=== PATIENT | male | born 1930 | race Caucasian/White ===

== ENCOUNTER 2018-08-02 16:31 | Inpatient (IN) | payer MEDICARE ==
[2018-08-02 17:11] LABS: #Eosinphils 0.3 thou/uL (0.0-0.7); #Lymphocytes 1.1 thou/uL (1.20-3.40); #Monocytes 0.8 thou/uL (0.11-0.59); #Neutrophils 5.6 thou/uL (1.40-6.50); %Basophils 0.6 % (0.0-1.0); %Eosinophils 3.9 % (0.0-10.0); %Lymphocytes 13.8 % (21.0-51.0); %Monocytes 10.8 % (0.0-10.0); Hemoglobin 10.4 g/dL (14.0-18.0); Mean Corpuscular HGB CONC 32.1 g/dL (32.0-36.0); Mean Corpuscular Hemoglobin 30.7 pg (27.0-31.0); Mean Corpuscular Volume 95.6 fL (78.0-98.0); Mean Platelet Volume 7.6 fL (7.4-10.4); Platelet Count 225 thou/uL (130-400); RBC Distribution Width 12.7 % (11.5-14.5); Red Blood Cell (RBC) Count 3.38 mill/uL (4.70-6.10); White Blood Cell (WBC) Count 7.8 thou/uL (4.8-10.8)
[2018-08-02 17:17] LABS: INR-International Normal Ratio 2.1; PTT 35.7 SEC (22.9-36.1)
[2018-08-02 17:38] LABS: ALT (SGPT) 11 U/L (8-55); AST (SGOT) 15 U/L (5-34); Albumin 3.8 g/dL (3.4-4.8); Alkaline Phosphatase 58 U/L (40-150); Anion Gap 14 mmol/L (10-20); BUN (Urea Nitrogen) 35 mg/dL (8.4-25.7); Bilirubin, Total 0.9 mg/dL (0.2-1.2); CK (CPK) 114 U/L (30-200); Calc. Creatinine Clearance 0 mL/min (70-130); Calcium 8.7 mg/dL (7.8-10.44); Carbon Dioxide 23 mmol/L (23-31); Chloride 108 mmol/L (98-107); Estimated GFR-MDRD 42; Globulin 2.3 g/dL (2.4-3.5); Glucose 103 mg/dL (83-110); Lipase 14 U/L (8-78); Potassium 4.1 mmol/L (3.5-5.1); Protein, Total 6.1 g/dL (5.8-8.1); Sodium 141 mmol/L (136-145)
[2018-08-02] MEDS ORDERED: Morphine 4 MG/ML VIAL ONE ×2 (17:40→23:17)
[2018-08-02] MEDS ORDERED: Ondansetron ODT 4 MG TAB PO PRN (18:48)
[2018-08-02] MEDS ORDERED: Ondansetron PF 4 MG/2 ML Vial IVP PRN (18:48)
[2018-08-02] MEDS ORDERED: Morphine 4 MG/ML VIAL SLOW IVP PRN (18:48)
[2018-08-02] MEDS ORDERED: Dextrose 50% Abboject 50 ML SYRINGE SLOW IVP PRN (18:48)
[2018-08-02] MEDS ORDERED: Dextrose 5% in Water 1,000 ML IV PRN (18:48)
[2018-08-02] MEDS ORDERED: hydrALAZINE 20 MG/ML VIAL SLOW IVP PRN (18:48)
--- NOTE | 2018-08-02 18:52 | RAD ---
FRONTAL RADIOGRAPH PELVIS 08/02/18 COMPARISON: None. HISTORY: Fall, trauma, pain. FINDINGS: Obliquely oriented impacted fracture is seen involving the proximal right femur in the intertrochante ramona region. There is prominent degenerative change of the lower lumbar spine. Pelvic ring appears intact with no widening of the sacroiliac joint or pubic symphysis. IMPRESSION: Intertrochanteric fracture of the proximal right femur. POS: LATISHA
--- NOTE | 2018-08-02 18:53 | RAD ---
FRONTAL RADIOGRAPH CHEST 08/02/18 COMPARISON: None. HISTORY: Fall, trauma, pain, right hip fracture. FINDINGS: There is prominent degenerative change involving bilateral shoulders. There is no pneumothorax, lobar consolidation, or alveolar edema. There is mild increased linear interstitial density. Minimal blunting of costophrenic angle on right suggests scar and/or volume loss. IMPRESSION: No focal consolidation or alveolar edema. POS: ALYCEH
--- NOTE | 2018-08-02 18:55 | RAD ---
RIGHT HIP TWO VIEWS: 08/02/2018 HISTORY: Injury. Trauma. Pain. COMPARISON: None. FINDINGS: There is an obliquely oriented, mildly impacted fracture of the proximal right femur. This is seen i n the intertrochanteric region, extending into the subtrochanteric region, medially, inferior to the lesser trochanter. IMPRESSION: Obliquely oriented intertrochanteric/subtrochanteric fracture of the proximal right femur. POS: LATISHA
[2018-08-02] MEDS ORDERED: Phytonadione 10 MG in Sodium Chloride 0.9% 50 ML IVPB SCH (19:15)
[2018-08-03 00:33] VITALS: BMI 26.2
--- NOTE | 2018-08-03 01:26 | HP ---
TRAUMA ACTIVATION: Not applicable. TRAUMA SURGEON: Dr. Courtney. HISTORY OF PRESENT ILLNESS: João Loredo is an 88-year-old male who presented to [facility] as a transfer from [facility]. Per patient , he was outside walking approximately 1 mile, which he completed. The patient was walking to his truck, felt somewhat "off" and lightheaded, stepped off a curb, slipped and fell, striking his right hip. The patient denied head trauma or loss of consciousness. He further denies chest pain, shortness of breath, nausea, vomiting, fevers, chills. The patient was seen and evaluated in the emergency room at [facility] and found to have a right femur fracture. He was transferred to [facility] for further evaluation and care. Orthopedic surgery was notified and Trauma Services was asked to admit. Upon my evaluation, the patient has a chief complaint of right hip pain. He denies new pain elsewhere. He is currently being evaluated by Dr. Clark from Orthopedic surgery. Of note, the patient does have a history of DVT and atrial fibrillation and is on Coumadin with an INR of 2.1. ALLERGIES: 1. KEFLEX. 2. MINOCYCLINE. HOME MEDICATIONS: Include: 1. Lasix 40 mg p.o. daily. 2. Synthroid 100 mcg. 3. Lyrica 150 mg. 4. Spiriva daily. 5. Coumadin 3 mg daily. 6. Vitamin D supplementation. PAST MEDICAL HISTORY: 1. Colon cancer status post resection and multiple exploratory laparotomies. 2. Prostate cancer status post radiation. 3. Melanoma of the left eye. 4. History of atrial fibrillation. 5. Hypothyroidism. 6. Bilateral DVT. 7. CKD. 8. Sleep Apnea PAST SURGICAL HISTORY: 1. Multiple exploratory laparotomies. 2. Colectomy with colostomy. 3. Urostomy. 4. IVC filter placement. 5. Appendectomy. 6. Right knee surgery. SOCIAL HISTORY: The patient lives alone. He ambulates with the use of a cane. Denies alcohol, tobacco, or illicit drug use. FAMILY HISTORY: Noncontributory in this age. REVIEW OF SYSTEMS: A 10-point review of systems was performed and negative except as indicated in the HPI. PHYSICAL EXAMINATION: VITAL SIGNS: On evaluation, blood pressure 155/67, pulse 67, respiration 18, O2 saturation 97% on room air, temperature 98.6, and pain rated 2/10. GENERAL: Elderly appearing male in no acute distress, resting in bed. EYES: Extraocular movements are intact. NECK: Supple. Trachea is midline. There is no midline tenderness to palpation. CHEST: Atraumatic, normal work of breathing, symmetric rise. LUNGS: Sounds are distant, but clear to auscultation bilaterally. CARDIOVASCULAR: Regular rate and rhythm with a 2/6 holosystolic murmur. ABDOMEN: Soft, nontender, nondistended. Colostomy with liquid and solid stool. Urostomy in place. MUSCULOSKELETAL: Back exam is reported as being within normal limits. Bilateral upper extremities within normal limits. Bilateral lower extremities with stasis dermatitis and 2+ pulses. The right lower extremity range of motion is limited secondary to pain and is shortened and externally rotated. Left lower extremity with a knee brace in place. NEURO: GCS 15, no focal deficit LABORATORY FINDINGS: WBC 7.8, hemoglobin 10.4, hematocrit 32.3, platelet count 225. INR is 2.1. Sodium 141, potassium 4.1, chloride 108, carbon dioxide 23, BUN 35 , creatinine 1.57, glucose 103, T-bili, AST and ALT within normal limits. Troponin less than 0.010. BNP 19.5. RADIOGRAPHIC FINDINGS: CT of the brain from outside facility report read as being without acute intracranial abnormality. Chest x-ray performed at our facility, official read is pending with coarse interstitial markings and perihilar fullness with bibasilar pleural effusions/atelectasis. X-ray of the hip demonstrates a right intertrochanteric femur fracture. X-ray of the pelvis demonstrates the same. EKG with first degree heart block. ASSESSMENT: 1. Status post fall associated with lightheadedness. 2. Right intertrochanteric hip fracture. 3. Acute traumatic pain. 4. History of deep venous thrombosis status post IVC filter placement. 5. History of atrial fibrillation, on chronic anticoagulation. 6. Chronic kidney disease, unknown baseline. 7. History of colon cancer, status post colectomy and colostomy. 8. History of prostate cancer status post radiation and multiple intraabdominal interventions. 9. History of urostomy tube placement. 10. History of left eye melanoma. PLAN: Admit to Trauma Services. Orthopedic surgery has seen and evaluated the patient and hope for operative intervention tomorrow pending reversal of INR. We would observe on telemetry given patient's symptomatology prior to fall. Obtain orthostatic vital signs when able. Echocardiogram for heart murmur and possible presyncopal event. Ten of IV vitamin K now. Recheck INR in a.m. Pain control via p.o. and IV analgesics. The patient should be n.p.o. after midnight. Gentle IV fluid hydration. Postoperative PT and OT. DVT and gastritis prophylaxis when appropriate. Inpatient rehab screen as patient was relatively independent prior to his fall. The plan for admission and care were discussed with the patient and family at bedside and all questions were answered at the time of this dictation. Trauma attending has been notified of admission. Job ID: [id number] MTDD
[2018-08-03] MEDS: Famotidine 20 MG TAB PO SCH ×2 (01:40→20:37)
[2018-08-03] MEDS: Senokot S 8.6-50 MG TAB PO SCH ×3 (01:40→20:37)
[2018-08-03 02:05] LABS: Bilirubin Negative (Negative); Blood, Urine Trace (Negative); Clarity CLOUDY (Clear); Glucose, Urine (Dipstick) Negative (Negative); Leukocyte Large (Negative); Nitrite Positive (Negative); Protein, Urine (Dipstick) Negative (Neg-Trace); Specific Gravity, Urine 1.012 (1.002-1.036); Urobilinogen 0.2 mg/dL (0.2-1.0); pH, Urine 6.5 (5.0-9.0)
[2018-08-03 02:09] LABS: Bacteria/HPF 4+ HPF (None Seen); RBC/HPF 0-3 HPF (0-3); Squamous Epithelial None Seen HPF (0-3)
[2018-08-03 02:15] LABS: Hyaline Casts/LPF NONE SEEN LPF (0-3 Hyaline); Urine Culture Reflex Yes Yes
[2018-08-03] MEDS: traMADol HCl 50 MG TAB PO SCH ×3 (02:46→19:40)
[2018-08-03] MEDS: Acetaminophen 1,000 MG in Premix Bag 1 BAG IVPB SCH ×4 (02:48→19:40)
[2018-08-03] MEDS: Sodium Chloride 0.9% 1,000 ML IV SCH ×2 (02:48→19:40)
[2018-08-03 05:21] LABS: #Eosinphils 0.2 thou/uL (0.0-0.7); #Lymphocytes 0.7 thou/uL (1.20-3.40); #Monocytes 0.7 thou/uL (0.11-0.59); #Neutrophils 3.8 thou/uL (1.40-6.50); %Basophils 0.1 % (0.0-1.0); %Eosinophils 3.9 % (0.0-10.0); %Lymphocytes 12.2 % (21.0-51.0); %Monocytes 13.3 % (0.0-10.0); %Neutrophils 70.5 % (42.0-75.0); Hemoglobin 9.8 g/dL (14.0-18.0); Mean Corpuscular HGB CONC 32.7 g/dL (32.0-36.0); Mean Corpuscular Hemoglobin 31.3 pg (27.0-31.0); Mean Corpuscular Volume 95.8 fL (78.0-98.0); Mean Platelet Volume 7.9 fL (7.4-10.4); Platelet Count 194 thou/uL (130-400); RBC Distribution Width 12.6 % (11.5-14.5); Red Blood Cell (RBC) Count 3.14 mill/uL (4.70-6.10); White Blood Cell (WBC) Count 5.4 thou/uL (4.8-10.8)
[2018-08-03 05:24] LABS: INR-International Normal Ratio 1.6; PTT 37.6 SEC (22.9-36.1); Prothrombin Time 19.5 SEC (12.0-14.7)
[2018-08-03 05:44] LABS: Anion Gap 12 mmol/L (10-20); BUN (Urea Nitrogen) 29 mg/dL (8.4-25.7); Calc. Creatinine Clearance 47 mL/min (70-130); Calcium 8.2 mg/dL (7.8-10.44); Carbon Dioxide 22 mmol/L (23-31); Chloride 110 mmol/L (98-107); Estimated GFR-MDRD 50; Glucose 104 mg/dL (83-110); Magnesium 1.9 mg/dL (1.6-2.6); Phosphorus 2.9 mg/dL (2.3-4.7); Potassium 4.1 mmol/L (3.5-5.1); Sodium 140 mmol/L (136-145)
[2018-08-03] MEDS ORDERED: Clindamycin/D5W 900 MG in Premix Bag 1 BAG IVPB SCH (07:00)
[2018-08-03] MEDS ORDERED: Magnesium Oxide 250 MG TAB PO SCH (07:54)
[2018-08-03] MEDS: Polyethylene Glycol 3350 17 GM Packet PO SCH (08:48)
[2018-08-03 09:43] LABS: INR-International Normal Ratio 1.5; PTT 36.7 SEC (22.9-36.1); Prothrombin Time 18.5 SEC (12.0-14.7)
[2018-08-03] MEDS: Ipratropium Bromide 2.5 ml Neb NEB SCH ×3 (11:54→23:39)
--- NOTE | 2018-08-03 12:37 | PRG ---
DATE OF SERVICE: 08/03/2018 SUBJECTIVE: The patient is status post right femur fracture due to fall from standing from unknown etiology. The patient received vitamin K yesterday in the emergency department for an INR of 2.1. The patient is on Coumadin for bilateral lower extremity DVTs. He also has an IVC filter. This morning, he is n.p.o. and reports good pain control. He reports pain only when moving. He is to go to the operating room with Dr. Clark this afternoon with a goal INR of 1.5 or less. An echo was completed yesterday and read as normal. OBJECTIVE: VITAL SIGNS: Temperature 98 degrees, pulse 60, respirations 18, and blood pressure 135/60. GENERAL: Alert and oriented, sitting up in bed, well appearing. NEURO: GCS is 15. Alert and oriented x3. Gross motor and sensation intact. Pupils equal, round, and reactive to light. NECK: Unremarkable. PULMONARY: No signs of acute distress. Equal chest rise and fall. Lung fried are clear bilaterally. HEART: Regular rate and rhythm. No murmurs, gallops, or rubs. GI: Abdomen is soft, nontender, nondistended. Positive bowel sounds. PELVIS: Stable. Pain to right lateral pelvis/thigh. EXTREMITIES: Gross motor and sensation intact in all 4 extremities. 2+ pulses in all 4 extremities. Mild swelling to bilateral lower extremities - unchanged from the patient's baseline. Right lateral thigh/hip pain to palpation. LABORATORY FINDINGS: White count 5.4, hemoglobin 9.8, hematocrit 31.1, and platelets 194. Sodium 140, potassium 4.1, chloride 110, bicarbonate 22, BUN 29, creatinine 1.34, glucose 104, phosphorus 2.9, magnesium 1.9. INR 1.6. DIAGNOSTIC FINDINGS: Echocardiogram completed on August 02, 2018 demonstrates ejection fraction estimated at 60% to 65%. Grade 1/3 diastolic dysfunction. Mild concentric left ventricular hypertrophy. Mitral annular calcification is present. Mild mitral regurgitation. No LVOT obstruction. Mild tricuspid regurgitation. ASSESSMENT: 1. Status post fall associated with lightheadedness. 2. Right femoral neck fracture. 3. Acute traumatic pain. 4. History of deep venous thrombosis, status post IVC filter and on Coumadin. 5. History of atrial fibrillation. 6. History of chronic kidney disease, unknown baseline creatinine. 7. History of colon and prostate cancer, status post colectomy and colostomy. 8. History of prostate cancer with status post radiation, history of urostomy tube placement. 9. History of left eye melanoma. 10. History of obstructive sleep apnea. PLAN: The patient is to go to the OR with Dr. Clark to have his right femoral neck fracture fixed today. Ten of vitamin K was given yesterday evening and his INR was checked at 4:00 a.m. with a result of 1.6. We will check an additional INR this morning, and if his INR is 1.5 or less, we will hold further intervention. If his INR is still 1.6, we will give 2 units of FFP. EKG and echo results were normal. We will continue n.p.o. for now with normal saline at 75 an hour. Once the patient is postop, we will start diet. Magnesium replaced today. We will start home amlodipine, Synthroid, Spiriva, and iron tomorrow 8:00 in the morning. We will continue to hold Coumadin for now. Job ID: [id number]
[2018-08-03] MEDS ORDERED: Fentanyl 100 MCG/2 ML VIAL ONE ×3 (12:53→15:11)
[2018-08-03] MEDS ORDERED: Clindamycin/D5W 900 mg/50 ml Premix Bag ONE (12:54)
[2018-08-03] MEDS ORDERED: KETAMINE 100 MG/ML (5ML VIAL) ONE (12:56)
[2018-08-03] MEDS ORDERED: Morphine Sulfate 2 MG/ML SYRINGE SLOW IVP PRN (14:57)
[2018-08-03] MEDS ORDERED: Promethazine HCl 25 MG/ML VIAL IM PRN ×2 (14:57→15:47)
[2018-08-03] MEDS ORDERED: Ondansetron HCl/PF 4 MG/2 ML Vial IVP PRN ×2 (14:57→15:47)
[2018-08-03] MEDS ORDERED: Promethazine HCl 25 MG/ML VIAL SLOW IVP PRN ×2 (14:57→15:47)
--- NOTE | 2018-08-03 15:16 | RAD ---
RIGHT HIP 2 VIEWS: HISTORY: Intraoperative films. These films show a long stem intramedullary bradley and a Kash's type compression screw which are in s atisfactory position. Intratrochanteric fracture appears well stabilized. IMPRESSION: Postoperative changes right hip. POS: LATISHA
[2018-08-03] MEDS ORDERED: Lidocaine 1% PF 5 ML VIAL ONE (15:51)
[2018-08-03] MEDS ORDERED: Rocuronium Bromide 10 MG/ML (10ML VIAL) ONE (15:51)
[2018-08-03] MEDS ORDERED: PROPOFOL 200 MG/20 ML VIAL ONE (15:51)
[2018-08-03] MEDS ORDERED: Glycopyrrolate 0.2 MG/ML 5 ML SYRINGE ONE (15:51)
[2018-08-03] MEDS: Ferrous Sulfate 325 MG TAB PO SCH (19:40)
[2018-08-03] MEDS: Clindamycin/D5W 900 MG in Premix Bag 1 BAG IVPB SCH (21:18)
[2018-08-04] MEDS: Acetaminophen 1,000 MG in Premix Bag 1 BAG IVPB SCH (00:08)
[2018-08-04] MEDS: traMADol HCl 50 MG TAB PO SCH ×4 (00:08→18:09)
[2018-08-04] MEDS: Sodium Chloride 0.9% 1,000 ML IV SCH (04:03)
[2018-08-04] MEDS: Clindamycin/D5W 900 MG in Premix Bag 1 BAG IVPB SCH ×2 (05:31→14:26)
--- NOTE | 2018-08-04 07:19 | OP ---
DATE OF PROCEDURE: 08/03/2018 PREOPERATIVE DIAGNOSIS: Right intertrochanteric femur fracture. POSTOPERATIVE DIAGNOSIS: Right intertrochanteric femur fracture. PROCEDURE PERFORMED: Titanium trochanteric fixation nail, right intertrochanteric femur. ANESTHESIA: General. HOMEMAKING REHABILITATION CONSULTANT: Brittnee Odell PA-C ESTIMATED BLOOD LOSS: 150 mL. IMPLANT: Synthes system was used with a 14 x 420 mm TFNA with a 110 mm TFNA hip screw and a single 5 mm distal cross-lock screw. COMPLICATIONS: None. DRAINS: None. SPECIMEN: None. OUTCOME: Near anatomical alignment of the intertrochanteric femur fracture. INDICATIONS: The patient is a pleasant 88-year-old gentleman status post ground level fall sustaining an intertrochanteric femur fracture with extension into the subtrochanteric region. After discussion with the patient including risks and benefits, we decided to proceed with intramedullary hip screw stabilization for this fracture. Risks include, but are not limited to bleeding, infection, nerve injury, DVT, PE, malunion, nonunion, hardware failure. The patient appears to understand and does wish to proceed. DESCRIPTION OF PROCEDURE: The patient was brought to the operating room and a time-out performed, followed by induction of general anesthesia. The patient was positioned supine on the fracture table with the injured extremity held in longitudinal traction and slight internal rotation. This achieving a near anatomic alignment under C-arm guidance. The well leg was held in extension at the hip to allow for AP lateral imaging of the right hip. Next, a sterile prep and drape were performed on right lateral thigh. A small incision was made proximal to the greater trochanter. After the skin was sharply incised, dissection was carried down bluntly such as the tip of the greater trochanter could be easily palpated. Next, a threaded guidewire was passed from the tip of the greater trochanter into the proximal femoral canal. This was followed by passage of the opening reamer. Next, a ball-tipped guidewire was passed down the shaft of the femur and then reaming performed basically starting at a 15 mm size and this achieved just some mild cortical chatter. The reamer was then removed, and the 14 x 420 mm nail was passed down the canal without difficulty. Once positioned in appropriate depth, a second incision was made distal to the first and then the hip screw guide was inserted through the appropriate jig and a threaded guidewire was passed from the lateral cortex of the femur up the femoral neck into the femoral head approaching a [id number] position on both AP and lateral imaging. Next, measurement was taken off this pin for the hip screw length and then the step drill was passed over the guidewire for the preparing the neck and head for the hip screw placement. The hip screw was then driven in place under C-arm guidance. Once appropriately positioned, the locking mechanism was engaged, then backed off one-half turn to allow for sliding of the hip screw. Next, the C-arm was repositioned distally and a single distal cross-lock screw was applied from lateral to medial using freehand technique. With completion of this, AP and lateral images were performed of the knee and its distal cross-lock screw as well as the fracture in the proximal hip screw site. The incisions were then irrigated with normal saline with bulb syringe. The distal-most incision was closed with andrés. The other two incisions were closed with 2-0 Vicryl and andrés. Xeroform gauze and tape dressing were then applied to the thigh, and the patient was transferred to recovery room in stable condition. There were no complications. He tolerated the procedure well. Job ID: [id number]
[2018-08-04] MEDS: Ipratropium Bromide 2.5 ml Neb NEB SCH ×3 (07:41→19:11)
--- NOTE | 2018-08-04 07:52 | CON ---
DATE OF CONSULTATION: 08/02/2018 ORTHOPEDIC CONSULTATION NOTE: BRIEF HISTORY OF PRESENT ILLNESS: Mr. Loredo is a pleasant 88-year-old gentleman with extensive past medical history. He reports that earlier on the day of admission, he was outside walking. He walks approximately 1 mile per day. He just completed his walk that was heading towards his truck. When he became slightly lightheaded, he stepped off a curb, slipped, fell, and struck his right hip. There was no loss of consciousness. He was initially seen and evaluated at the [facility] in [place], where x-rays demonstrated a right proximal femur fracture in the intertrochanteric region with slight extension into the subtroch area. As such, he was subsequently transferred to [facility] for further care and Orthopedic consultation. I was asked to see the patient by Dr. Shiva Courtney. Of note, the patient does have extensive past medical history including a history of venous thrombosis and atrial fibrillation for which he is on Coumadin. He has an INR of 2.1 in the emergency room. MEDICATIONS: 1. Lasix. 2. Synthroid. 3. Spiriva. 4. Lyrica. 5. Coumadin 3 mg daily. ALLERGIES: TO KEFLEX AND MINOCYCLINE. PAST MEDICAL HISTORY: Remarkable for history of colon cancer, status post resection and now left with a colostomy. Also, status post prostate cancer and radiation, and he does have a urostomy. History of melanoma, atrial fibrillation, bilateral deep venous thrombosis, and hypothyroidism. PAST SURGICAL HISTORY: Includes exploratory laparotomies, colectomy with colostomy, urostomy, IVC filter, appendectomy as well as prior right knee surgery. SOCIAL HISTORY: He lives in the [facility] in [place]. He mobilizes with a cane and does walk approximately 1 mile per day. He denies alcohol, drug, or tobacco use. FAMILY HISTORY: Noncontributory. REVIEW OF SYSTEMS: Denies recent fevers, chills, or sweats. Denies chest pain or shortness of breath. Denies numbness or tingling in the lower extremities. PHYSICAL EXAMINATION: VITAL SIGNS: At the time of examination, he was found to have a temperature of 98.6 with a heart rate of 67, respiratory rate of 18, and blood pressure of 155/67. GENERAL: He was found to be well-kept elderly gentleman with 3 family members at bedside. HEENT: Atraumatic, normocephalic. HEART: Shows a regular rate with a 2/6 systolic murmur. LUNGS: Clear to auscultation without crackles or wheezes. ABDOMEN: Remarkable for both colostomy and urostomy bags in place. Otherwise, nontender. PELVIS: Stable to compression. EXTREMITIES: Bilateral upper extremities that are atraumatic except for some minor bruising. The left lower extremity also atraumatic at hip, knee, ankle, and foot. The right lower extremity is remarkable for hip is held in slight external rotation, but with minimal shortening. He has pain with any motion at the hip. The knee, ankle, and foot appear relatively atraumatic, although palpation of the knee does show some osteophytes and he has just a trace effusion. Distal neurovascular exam is intact. X-RAYS: X-ray of the pelvis as well as x-ray of the right hip remarkable for intertrochanteric femur fracture with some extension heading towards the subtroch region. ASSESSMENT: The patient is a pleasant 88-year-old gentleman, status post fall sustaining a right intertrochanteric femur fracture with multiple medical comorbidities. PLAN: At this time, the patient is being admitted to the Trauma Service. We will proceed with vitamin K administration and recheck his INR in the morning. If we can get the INR to a level of around 1.5, we should be able to proceed safely with TFN nail. This evening, I discussed with the patient and his family risks and benefits of this procedure. Risks include, but are not limited to bleeding, infection, nerve injury, DVT, PE, loss of limb or life. The patient appears to understand and does wish to proceed. Consent will be obtained prior to surgery. Job ID: [id number]
[2018-08-04 08:17] LABS: #Eosinphils 0.2 thou/uL (0.0-0.7); #Lymphocytes 0.8 thou/uL (1.20-3.40); #Monocytes 0.7 thou/uL (0.11-0.59); #Neutrophils 4.9 thou/uL (1.40-6.50); %Basophils 0.3 % (0.0-1.0); %Eosinophils 3.5 % (0.0-10.0); %Lymphocytes 11.7 % (21.0-51.0); %Monocytes 10.5 % (0.0-10.0); %Neutrophils 73.9 % (42.0-75.0); Hemoglobin 9.1 g/dL (14.0-18.0); Mean Corpuscular HGB CONC 31.9 g/dL (32.0-36.0); Mean Corpuscular Hemoglobin 30.7 pg (27.0-31.0); Mean Platelet Volume 8.4 fL (7.4-10.4); Platelet Count 170 thou/uL (130-400); RBC Distribution Width 12.5 % (11.5-14.5); Red Blood Cell (RBC) Count 2.98 mill/uL (4.70-6.10); White Blood Cell (WBC) Count 6.6 thou/uL (4.8-10.8)
[2018-08-04 08:27] LABS: INR-International Normal Ratio 1.3; Prothrombin Time 16.4 SEC (12.0-14.7)
[2018-08-04 08:35] LABS: Anion Gap 12 mmol/L (10-20); BUN (Urea Nitrogen) 20 mg/dL (8.4-25.7); Calc. Creatinine Clearance 56 mL/min (70-130); Calcium 8.1 mg/dL (7.8-10.44); Carbon Dioxide 21 mmol/L (23-31); Chloride 111 mmol/L (98-107); Estimated GFR-MDRD 61; Glucose 99 mg/dL (83-110); Magnesium 1.9 mg/dL (1.6-2.6); Phosphorus 2.8 mg/dL (2.3-4.7); Potassium 4.3 mmol/L (3.5-5.1); Sodium 140 mmol/L (136-145)
[2018-08-04] MEDS: traMADol HCl 50 MG TAB PO PRN (08:42)
[2018-08-04] MEDS: Senokot S 8.6-50 MG TAB PO SCH ×2 (08:42→21:47)
[2018-08-04] MEDS: Enoxaparin Sodium 40 MG/0.4 ML SYRINGE SC SCH ×2 (08:43→21:46)
[2018-08-04] MEDS: Polyethylene Glycol 3350 17 GM Packet PO SCH (08:45)
[2018-08-04] MEDS ORDERED: Amlodipine 5 MG TAB PO SCH (09:00)
[2018-08-04] MEDS ORDERED: Spiriva 18 MCG CAP (Box of 5 Caps) INH SCH (09:00)
[2018-08-04] MEDS ORDERED: Levothyroxine Sodium 100 MCG TAB PO SCH (09:00)
[2018-08-04] MEDS ORDERED: Sulfameth/Trimethoprim DS 800-160mg TAB PO SCH (11:45)
[2018-08-04] MEDS: Ascorbic Acid 500 mg Chewable Tablet PO SCH (11:57)
[2018-08-04] MEDS: Ferrous Sulfate 325 MG TAB PO SCH (11:57)
[2018-08-04] MEDS: Acetaminophen 500 MG TAB PO SCH ×3 (11:57→23:56)
[2018-08-04] MEDS: Ibuprofen 800 MG TAB PO SCH ×2 (13:16→18:07)
[2018-08-04] MEDS: Warfarin Sodium 2 MG TAB PO SCH (16:32)
--- NOTE | 2018-08-04 17:13 | PRG ---
DATE OF SERVICE: 08/04/2018 SUBJECTIVE: The patient is status post right femur fracture due to fall from standing from unknown etiology. He went to the OR yesterday with Dr. Clark for a right femur nail. He completed cardiac monitoring and an echo, which were within normal limits. The patient is also on Coumadin for bilateral lower extremity DVTs and has an IVC filter. His Coumadin was reversed in the emergency department on arrival in preparation for surgery. Postop, he was started on 40 of Lasix b.i.d. Today, we discussed bridging his Coumadin. This morning, he appeared alert and awake. Reported pain was well controlled. Tolerating a regular diet. The patient denied nausea, vomiting, or constipation. OBJECTIVE: VITAL SIGNS: Temperature 99, heart rate 89, respirations 16, oxygen 95% on 1 L nasal cannula, and blood pressure 133/57. GENERAL: Alert and oriented, sitting up in bed, well appearing. NEUROLOGIC: GCS is 15. Alert and oriented x3. Gross motor and sensation intact. HEENT: Pupils are equal, round, and reactive to light. NECK: Unremarkable. PULMONARY: No signs of acute distress. Equal chest rise and fall. Lung fried are clear bilaterally. HEART: Regular rate and rhythm. No murmurs, gallops, or rubs. GI: Abdomen is soft, nontender, and nondistended. Positive bowel sounds. He has a colostomy in the left lower quadrant and urostomy in place. PELVIC: Stable. Minimal pain to right lateral pelvis/thigh. EXTREMITIES: Gross motor and sensation intact in all four extremities. 2+ pulses in all four extremities. Mild swelling in the bilateral lower extremities - unchanged from the patient's baseline. LABORATORY FINDINGS: White count 6.6, hemoglobin 9.1, hematocrit 28.6, and platelets 170. INR 1.3. Sodium 140, potassium 4.3, chloride 111, bicarb 21, BUN 20, creatinine 1.13, phosphorus 2.8, and magnesium 1.9. DIAGNOSTIC FINDINGS: There were no diagnostic findings to report. ASSESSMENT: 1. Status post fall, unknown etiology. 2. Right femoral neck fracture, status post repair. 3. Acute traumatic pain. 4. History of deep venous thrombosis, status post IVC filter and on Coumadin at home. 5. History of atrial fibrillation. 6. History of chronic kidney disease, unknown baseline creatinine. 7. History of colon and prostate cancer, status post colostomy and colectomy. 8. History of prostate cancer, status post radiation, history of urostomy tube placement. 9. History of left eye melanoma. 10. History of obstructive sleep apnea. 11. Urinary tract infection, uncomplicated. PLAN: Continue current pain regimen. We will start a 3-day course of Bactrim today for UTI. We will start to bridge Coumadin today with his first dose of 4 mg given this evening. We will follow up with a morning INR. We will have Physical Therapy and Occupational Therapy see the patient. The patient was seen and examined as well as discussed with Dr. Chacon this morning during rounds. Job ID: [id number]
[2018-08-04] MEDS ORDERED: Sodium Chloride 0.45% 500 ML IV SCH (20:30)
[2018-08-04] MEDS: Hydrocortisone Sod Succ/PF 100 mg/2 ml Vial IVP SCH ×2 (20:41→21:40)
[2018-08-04 20:55] LABS: #Eosinphils 0.2 thou/uL (0.0-0.7); #Lymphocytes 0.9 thou/uL (1.20-3.40); #Monocytes 0.5 thou/uL (0.11-0.59); #Neutrophils 4.5 thou/uL (1.40-6.50); %Basophils 0.5 % (0.0-1.0); %Eosinophils 3.5 % (0.0-10.0); %Monocytes 8.6 % (0.0-10.0); %Neutrophils 72.4 % (42.0-75.0); Hemoglobin 8.4 g/dL (14.0-18.0); Mean Corpuscular HGB CONC 32.2 g/dL (32.0-36.0); Mean Corpuscular Hemoglobin 31.1 pg (27.0-31.0); Mean Corpuscular Volume 96.9 fL (78.0-98.0); Mean Platelet Volume 8.1 fL (7.4-10.4); Platelet Count 153 thou/uL (130-400); RBC Distribution Width 12.6 % (11.5-14.5); Red Blood Cell (RBC) Count 2.69 mill/uL (4.70-6.10); White Blood Cell (WBC) Count 6.2 thou/uL (4.8-10.8)
[2018-08-04 21:21] LABS: Anion Gap 10 mmol/L (10-20); BUN (Urea Nitrogen) 25 mg/dL (8.4-25.7); Calc. Creatinine Clearance 36 mL/min (70-130); Calcium 7.8 mg/dL (7.8-10.44); Carbon Dioxide 23 mmol/L (23-31); Chloride 110 mmol/L (98-107); Estimated GFR-MDRD 37; Glucose 108 mg/dL (83-110); Magnesium 1.9 mg/dL (1.6-2.6); Phosphorus 3.1 mg/dL (2.3-4.7); Potassium 4.1 mmol/L (3.5-5.1); Sodium 139 mmol/L (136-145)
[2018-08-04] MEDS: Famotidine 20 MG TAB PO SCH (21:46)
[2018-08-04] MEDS: Sulfameth/Trimethoprim DS 800-160mg TAB PO SCH (21:46)
[2018-08-05] MEDS: traMADol HCl 50 MG TAB PO SCH ×5 (00:13→23:38)
[2018-08-05] MEDS: Ipratropium Bromide 2.5 ml Neb NEB SCH ×4 (00:24→18:38)
[2018-08-05] MEDS: Ibuprofen 800 MG TAB PO SCH ×2 (03:03→08:47)
[2018-08-05] MEDS: Acetaminophen 500 MG TAB PO SCH ×4 (04:01→23:38)
[2018-08-05] MEDS: Hydrocortisone Sod Succ/PF 100 mg/2 ml Vial IVP SCH ×3 (05:25→21:11)
[2018-08-05] MEDS: Levothyroxine Sodium 100 MCG TAB PO SCH (05:25)
[2018-08-05 06:20] LABS: #Lymphocytes 0.5 thou/uL (1.20-3.40); #Monocytes 0.4 thou/uL (0.11-0.59); #Neutrophils 6.6 thou/uL (1.40-6.50); %Basophils 0.2 % (0.0-1.0); %Eosinophils 0.2 % (0.0-10.0); %Lymphocytes 6.6 % (21.0-51.0); %Monocytes 4.7 % (0.0-10.0); %Neutrophils 88.2 % (42.0-75.0); Hemoglobin 8.9 g/dL (14.0-18.0); Mean Corpuscular HGB CONC 31.5 g/dL (32.0-36.0); Mean Corpuscular Hemoglobin 30.6 pg (27.0-31.0); Mean Corpuscular Volume 97.2 fL (78.0-98.0); Mean Platelet Volume 8.8 fL (7.4-10.4); Platelet Count 156 thou/uL (130-400); RBC Distribution Width 12.5 % (11.5-14.5); Red Blood Cell (RBC) Count 2.91 mill/uL (4.70-6.10); White Blood Cell (WBC) Count 7.4 thou/uL (4.8-10.8)
[2018-08-05 06:28] LABS: INR-International Normal Ratio 1.3
[2018-08-05 07:02] LABS: Anion Gap 12 mmol/L (10-20); BUN (Urea Nitrogen) 25 mg/dL (8.4-25.7); Calc. Creatinine Clearance 40 mL/min (70-130); Carbon Dioxide 22 mmol/L (23-31); Chloride 106 mmol/L (98-107); Estimated GFR-MDRD 42; Glucose 126 mg/dL (83-110); Phosphorus 2.9 mg/dL (2.3-4.7); Potassium 4.1 mmol/L (3.5-5.1); Sodium 136 mmol/L (136-145)
[2018-08-05] MEDS: Enoxaparin Sodium 40 MG/0.4 ML SYRINGE SC SCH ×2 (08:45→21:10)
[2018-08-05] MEDS: Polyethylene Glycol 3350 17 GM Packet PO SCH (08:46)
[2018-08-05] MEDS: Senokot S 8.6-50 MG TAB PO SCH ×2 (08:46→21:11)
[2018-08-05] MEDS: Sulfameth/Trimethoprim DS 800-160mg TAB PO SCH ×2 (08:47→21:11)
[2018-08-05] MEDS: Ferrous Sulfate 325 MG TAB PO SCH (11:55)
[2018-08-05] MEDS: Ascorbic Acid 500 mg Chewable Tablet PO SCH (11:55)
--- NOTE | 2018-08-05 15:25 | PRG ---
DATE OF SERVICE: 08/05/2018 SUBJECTIVE: The patient is status post fall with right-sided femur fracture and uncomplicated UTI. He went to the OR on the with Dr. Clark and had his right femur fracture fixed. This morning, the patient is alert and awake, sitting at the edge of bed, working with physical therapy. Reports that he is feeling well, but feels that he does not have the strength that he had before. Coumadin was restarted last night. Overnight, the patient did have an episode of hypotension with systolics in the 80s. He received a 500 mL bolus of normal saline and his blood pressure has been within normal limits since that time. His amlodipine was held this morning. He is tolerating a regular diet. He denies nausea, vomiting, or constipation. OBJECTIVE: VITAL SIGNS: Temperature 98.3, pulse 70, respirations 18, oxygen 95% on room air, blood pressure 110/46. GENERAL: Alert and oriented, sitting up at edge of bed, well-appearing elderly gentleman. NEUROLOGIC: GCS is 15. Alert and oriented x3. Gross motor sensation intact. HEAD, EYES, EARS, NOSE, THROAT: Pupils are equal, round, reactive to light. NECK: Unremarkable. PULMONARY: No signs of acute distress. Equal chest rise and fall. LUNGS: Lung fried are clear bilaterally. HEART: Regular rate and rhythm. No murmurs, gallops, or rubs. GI: Abdomen is soft, nontender, nondistended. Positive bowel signs. Colostomy in place and left lower quadrant and urostomy in place with yellow urine in bag. Pelvis stable. Minimal pain to right lateral pelvis/thigh. EXTREMITIES: Gross motor and sensation intact in all 4 extremities. 2+ pulses in all extremities. Mild swelling in the bilateral lower extremities-unchanged from the patient's baseline. LABORATORY FINDINGS: White count 7.4, hemoglobin 8.9, hematocrit 28.3, platelets 156. INR 1.3. Sodium 136, potassium 4.1, chloride 106, carbon dioxide 22, BUN 25, creatinine 1.56, glucose 126, phos 2.9, magnesium 2.0. ASSESSMENT: 1. Status post fall, unknown etiology. 2. Right femoral neck fracture, status post repair. 3. Acute traumatic pain. 4. History of deep vein thrombosis, status post IVC filter and on Coumadin at home. 5. History of atrial fibrillation. 6. History of chronic kidney disease, unknown baseline creatinine. 7. History of recurrent and persistent urinary tract infections, on continuous antibiotics. 8. History of prostate cancer status post radiation and history of urostomy tube. 9. History of colon cancer, status post colectomy and colostomy. 10. History of left eye melanoma. 11. History of obstructive sleep apnea. 12. Urinary tract infection, uncomplicated. PLAN: We will continue to hold amlodipine as it is not indicated at this time. Amlodipine is the patient's home medication. We will replace phosphorus today. We will continue with current pain and diet regimen. The patient's family reports he takes Cipro daily by mouth for history of long-term urinary tract infection with urostomy tube. Family is to retrieve the prescription bottle or contact mail in pharmacy to determine the dose and frequency of Cipro. At that time, we will stop Bactrim and start the patient's home Cipro. The patient was seen and examined by Dr. Chacon this morning during rounds. Job ID: [id number]
[2018-08-05] MEDS: Warfarin Sodium 2 MG TAB PO SCH (15:43)
[2018-08-05] MEDS: Famotidine 20 MG TAB PO SCH (19:38)
[2018-08-05] MEDS: Sodium Chloride 0.9% 1,000 ML IV SCH (21:10)
[2018-08-06] MEDS: Ipratropium Bromide 2.5 ml Neb NEB SCH ×5 (00:41→23:59)
[2018-08-06] MEDS: Hydrocortisone Sod Succ/PF 100 mg/2 ml Vial IVP SCH (05:39)
[2018-08-06] MEDS: Levothyroxine Sodium 100 MCG TAB PO SCH (05:40)
[2018-08-06] MEDS: traMADol HCl 50 MG TAB PO SCH ×4 (05:40→22:51)
[2018-08-06] MEDS: Acetaminophen 500 MG TAB PO SCH ×4 (05:40→22:51)
[2018-08-06 06:21] LABS: #Lymphocytes 0.7 thou/uL (1.20-3.40); #Monocytes 0.4 thou/uL (0.11-0.59); #Neutrophils 5.3 thou/uL (1.40-6.50); %Eosinophils 0.3 % (0.0-10.0); %Lymphocytes 10.9 % (21.0-51.0); %Monocytes 6.8 % (0.0-10.0); Hemoglobin 7.6 g/dL (14.0-18.0); Mean Corpuscular HGB CONC 32.3 g/dL (32.0-36.0); Mean Corpuscular Hemoglobin 31.1 pg (27.0-31.0); Mean Corpuscular Volume 96.2 fL (78.0-98.0); Mean Platelet Volume 8.5 fL (7.4-10.4); Platelet Count 185 thou/uL (130-400); RBC Distribution Width 12.7 % (11.5-14.5); Red Blood Cell (RBC) Count 2.43 mill/uL (4.70-6.10); White Blood Cell (WBC) Count 6.4 thou/uL (4.8-10.8)
[2018-08-06 06:22] LABS: INR-International Normal Ratio 1.4; Prothrombin Time 17.2 SEC (12.0-14.7)
[2018-08-06 06:42] LABS: Anion Gap 8 mmol/L (10-20); BUN (Urea Nitrogen) 29 mg/dL (8.4-25.7); Calc. Creatinine Clearance 39 mL/min (70-130); Calcium 7.7 mg/dL (7.8-10.44); Carbon Dioxide 23 mmol/L (23-31); Chloride 108 mmol/L (98-107); Estimated GFR-MDRD 41; Glucose 118 mg/dL (83-110); Magnesium 1.6 mg/dL (1.6-2.6); Phosphorus 2.7 mg/dL (2.3-4.7); Potassium 4.1 mmol/L (3.5-5.1); Sodium 135 mmol/L (136-145)
[2018-08-06] MEDS: Enoxaparin Sodium 40 MG/0.4 ML SYRINGE SC SCH ×2 (08:22→21:21)
[2018-08-06] MEDS: Sulfameth/Trimethoprim DS 800-160mg TAB PO SCH (08:26)
[2018-08-06] MEDS: Senokot S 8.6-50 MG TAB PO SCH ×2 (08:27→21:33)
[2018-08-06] MEDS: Sodium Chloride 0.9% 1,000 ML IV SCH (08:27)
[2018-08-06] MEDS: Polyethylene Glycol 3350 17 GM Packet PO SCH (08:27)
[2018-08-06] MEDS ORDERED: Cipro 250 MG TAB PO SCH (09:00)
[2018-08-06] MEDS ORDERED: Nitrofurantoin Monohyd/M-Cryst 100 MG CAP PO SCH (10:15)
[2018-08-06] MEDS: Ascorbic Acid 500 mg Chewable Tablet PO SCH (11:19)
[2018-08-06] MEDS: Ferrous Sulfate 325 MG TAB PO SCH (11:19)
[2018-08-06] MEDS: Warfarin Sodium 2 MG TAB PO SCH (16:09)
--- NOTE | 2018-08-06 20:25 | PRG ---
DATE OF SERVICE: 08/06/2018 SUBJECTIVE: The patient is postop day #3, status post fall with right-sided femur fracture and also uncomplicated UTI. The patient is currently sitting up in the chair. Reports having a good appetite. Voices no complaints at this time and reports that his pain is well controlled. OBJECTIVE: VITAL SIGNS: Temperature 98.3, pulse is 60, respirations 16, 94% on room air, blood pressure 115/50. GENERAL: The patient is awake, alert, in no distress. Sitting up in the chair. Well-appearing, elderly gentleman. NEUROLOGIC: GCS 15. Alert and oriented x3. Gross motor sensation intact. HEENT: Pupils equal and reactive, trachea is midline. Head is atraumatic and normocephalic. PULMONARY: Equal chest rise and fall. Regular respiratory rate. No distress. HEART: Regular rate. No pedal edema. GI: Abdomen is soft, nontender, nondistended. EXTREMITIES: Moves all extremities. Sensation intact x4. LABORATORY DATA: WBC 6.4, RBC 2.43, hemoglobin 7.6, hematocrit 23.4, platelets 185, PT 17.2, INR 1.4. Sodium 135, potassium 4.1, chloride 108, BUN 29, creatinine 1.61, glucose 118, calcium 7.7, phosphorus 2.7, magnesium 1.6. Final urine culture shows resistance to Cipro. The patient with Citrobacter freundii. DIAGNOSTIC DATA: There are no diagnostics to report. IMPRESSION: 1. Status post fall, unknown etiology. 2. Right femoral neck fracture. Postop day #3. 3. Acute traumatic pain. 4. History of deep vein thrombosis status post IVC filter and on Coumadin at home. 5. History of atrial fibrillation. 6. History of chronic kidney disease with unknown baseline creatinine. 7. Recurrent and persistent urinary tract infections, on continuous Cipro. 8. History of prostate cancer, status post radiation and history of urostomy tube. 9. History of left eye melanoma. 10. History of obstructive sleep apnea. 11. Urinary tract infection, uncomplicated. PLAN: We will change the patient's antibiotics to Macrobid. We will continue pain regimen. Continue physical therapy. It is also recommended that the Bactrim the patient was getting could increase the patient's creatinine, pharmacy recommended Macrobid instead of Bactrim. We will continue to hold patient's amlodipine as blood pressures remain low with the highest being 128/53. The patient for possible discharge to detention tomorrow, we will continue to withhold any NSAIDs. Repeat labs in the morning to look at patient's renal function to determine if the patient is okay to be discharged. Dr. Chacon examined the patient during morning rounds. Job ID: [id number]
[2018-08-06] MEDS: Nitrofurantoin Monohyd/M-Cryst 100 MG CAP PO SCH (21:21)
[2018-08-06] MEDS: Famotidine 20 MG TAB PO SCH (21:22)
[2018-08-07] MEDS: Acetaminophen 500 MG TAB PO SCH ×4 (04:47→23:50)
[2018-08-07] MEDS: traMADol HCl 50 MG TAB PO SCH ×4 (05:04→23:50)
[2018-08-07] MEDS: Levothyroxine Sodium 100 MCG TAB PO SCH (05:05)
[2018-08-07] MEDS: Sodium Chloride 0.9% 1,000 ML IV SCH ×3 (05:05→16:32)
[2018-08-07] MEDS: Ipratropium Bromide 2.5 ml Neb NEB SCH ×3 (07:01→19:57)
[2018-08-07 08:07] LABS: Anion Gap 9 mmol/L (10-20); BUN (Urea Nitrogen) 25 mg/dL (8.4-25.7); Calc. Creatinine Clearance 48 mL/min (70-130); Calcium 7.6 mg/dL (7.8-10.44); Carbon Dioxide 21 mmol/L (23-31); Chloride 112 mmol/L (98-107); Estimated GFR-MDRD 51; Glucose 92 mg/dL (83-110); Potassium 3.9 mmol/L (3.5-5.1); Sodium 138 mmol/L (136-145)
[2018-08-07] MEDS: Senokot S 8.6-50 MG TAB PO SCH ×2 (09:09→21:49)
[2018-08-07] MEDS: Nitrofurantoin Monohyd/M-Cryst 100 MG CAP PO SCH ×2 (09:09→21:49)
[2018-08-07] MEDS: Polyethylene Glycol 3350 17 GM Packet PO SCH (09:09)
[2018-08-07] MEDS: Enoxaparin Sodium 40 MG/0.4 ML SYRINGE SC SCH ×2 (09:10→21:49)
[2018-08-07 10:30] LABS: INR-International Normal Ratio 1.7; Prothrombin Time 19.9 SEC (12.0-14.7)
[2018-08-07] MEDS: Ferrous Sulfate 325 MG TAB PO SCH (12:27)
[2018-08-07] MEDS: Ascorbic Acid 500 mg Chewable Tablet PO SCH (12:27)
--- NOTE | 2018-08-07 15:43 | PRG ---
DATE OF SERVICE: 08/07/2018 SUBJECTIVE: This is an 88-year-old gentleman, who is postop day #4, status post ground level fall with a right femur fracture. The patient also with uncomplicated UTI. The patient is sitting up in the chair. Voices no complaints. The patient had no overnight events. The patient reports a good appetite and reports this pain is well controlled. The patient does report excessive drainage from his right hip at incision. Reports that the nurses had to change the dressing twice this morning as it is completely soaked through. It was reported that the drainage was clear. No blood noted. The patient's renal function has improved tremendously. The patient remains off of NSAIDs. OBJECTIVE: VITAL SIGNS: Temperature 97.9, pulse 55, respirations 20, SpO2 of 98% on room air, and blood pressure 139/55. GENERAL: The patient is awake, alert, sitting up in the chair, in no distress. NEUROLOGIC: GCS 15. Alert and oriented x3. Gross motor sensation intact. PULMONARY: Respirations equal and unlabored. Regular rate. No distress. CARDIOVASCULAR: Regular rate and rhythm. No pedal edema. GI: Abdomen is soft and nontender. The patient with urostomy tube. EXTREMITIES: Moves all extremities. Positive sensation x4. Positive distal pulses. The new dressing that was just placed at the patient's surgical site is clean and dry at this time. LABORATORY DATA: PT 19.9 and INR 1.7. Sodium 138, potassium 3.9, chloride 112, BUN 25, creatinine 1.32, estimated GFR 51, glucose 92, and calcium 7.6. DIAGNOSTICS: There is no diagnostics to report today. IMPRESSION: 1. Status post fall, unknown etiology. 2. Right femoral neck fracture, postop day #4. 3. Acute traumatic pain. 4. History of deep vein thrombosis status post inferior vena cava filter and on Coumadin at home. 5. History of atrial fibrillation. 6. History of chronic kidney disease with unknown baseline creatinine. 7. Recurrent persistent urinary tract infections. The patient on continuous Cipro at home. 8. History of prostate cancer, status post radiation and history of urostomy tube. 9. History of left eye melanoma. 10. History of obstructive sleep apnea. 11. Urinary tract infection, uncomplicated. PLAN: We will continue the patient's antibiotics for UTI. Continue the patient's pain regimen. Continue physical therapy. We will refrain from any nephrotoxic medications. Orthopedics was notified of the excessive wound drainage. Orthopedics recommends that the patient not be discharged today and need to have the nurses keep extra padding on to the wound and will re-evaluate tomorrow. Planned for discharge back to detention tomorrow if Orthopedics agrees. Job ID: [id number]
[2018-08-07] MEDS: Warfarin Sodium 2 MG TAB PO SCH (17:11)
[2018-08-07] MEDS: Famotidine 20 MG TAB PO SCH (21:48)
--- NOTE | 2018-08-08 00:04 | EKG ---
Test Reason : FALL Blood Pressure : / mmHG Vent. Rate : 068 BPM Atrial Rate : 068 BPM P-R Int : 266 ms QRS Dur : 094 ms QT Int : 416 ms P-R-T Axes : 100 -18 032 degrees QTc Int : 442 ms Sinus rhythm with 1st degree A-V block Otherwise normal ECG Confirmed by TOMMIE ROBERT, TANISHA ([id number]), editor in chief newspaper LUIS ANTUNEZ ([id number]) on 08/08/2018 12:03:59 AM Referred By: TOMMIE Confirmed By:TANISHA REILLY MD
[2018-08-08] MEDS: Ipratropium Bromide 2.5 ml Neb NEB SCH ×3 (00:17→11:29)
[2018-08-08] MEDS: Acetaminophen 500 MG TAB PO SCH ×3 (04:35→16:17)
[2018-08-08] MEDS: Levothyroxine Sodium 100 MCG TAB PO SCH (06:52)
[2018-08-08] MEDS: traMADol HCl 50 MG TAB PO SCH ×2 (06:52→12:15)
[2018-08-08] MEDS: Sodium Chloride 0.9% 1,000 ML IV SCH (06:53)
[2018-08-08 08:04] LABS: INR-International Normal Ratio 1.9; Prothrombin Time 22.1 SEC (12.0-14.7)
[2018-08-08] MEDS: Enoxaparin Sodium 40 MG/0.4 ML SYRINGE SC SCH (09:15)
[2018-08-08] MEDS: Senokot S 8.6-50 MG TAB PO SCH (09:15)
[2018-08-08] MEDS: Polyethylene Glycol 3350 17 GM Packet PO SCH (09:15)
[2018-08-08] MEDS: traMADol HCl 50 MG TAB PO PRN (09:18)
[2018-08-08] MEDS: Nitrofurantoin Monohyd/M-Cryst 100 MG CAP PO SCH (09:18)
[2018-08-08] MEDS: Ascorbic Acid 500 mg Chewable Tablet PO SCH (12:10)
[2018-08-08] MEDS: Ferrous Sulfate 325 MG TAB PO SCH (12:15)
[2018-08-08 16:07] VITALS: BP 150/61; TEMP 98
[2018-08-08] MEDS: Warfarin Sodium 2 MG TAB PO SCH (16:17)
--- NOTE | 2018-08-09 11:42 | DIS ---
DATE OF ADMISSION: 08/02/2018 DATE OF DISCHARGE: 08/08/2018 ADMITTING ATTENDING: Dr. Courtney. CONSULT: Orthopedics, Dr. Clark. DISCHARGE ATTENDING SURGEON: Dr. Chacon. PROCEDURES: 1. On 08/02/2018, chest x-ray, no focal consolidation or alveolar edema. 2. Hip x-ray on 08/02/2018, obliquely oriented intertrochanteric subtrochanteric fracture of the proximal right femur. 3. Pelvis x-ray on 08/02, intertrochanteric fracture of the proximal right femur. 4. On 08/02/2018, electrocardiogram sinus rhythm with first-degree AV block. 5. On 08/04/2018. Procedure performed; titanium trochanteric fixation nail, right intertrochanteric femur, by Dr. Clark. PRIMARY DIAGNOSIS: Right intertrochanteric femur fracture. SECONDARY DIAGNOSES: 1. Fall secondary to lightheadedness. 2. History of deep vein thrombosis, status post IVC filter placement. 3. History of atrial fibrillation, on chronic anticoagulation. 4. Chronic kidney disease. 5. History of colon cancer, status post colectomy and colostomy. 6. History of prostate cancer, status post radiation and multiple intraabdominal interventions. 7. History of urostomy tube placement. 8. History of left thigh melanoma. DISCHARGE MEDICATIONS: 1. Tramadol 50 mg p.o. q.6 hours p.r.n. for pain. 2. Acetaminophen 1000 mg p.o. q.6 hours. 3. Amlodipine 5 mg p.o. daily. 4. Vitamin C 500 mg p.o. daily. 5. Lovenox 40 mg b.i.d. 6. Pepcid 20 mg p.o. daily. 7. Iron 325 p.o. daily. 8. Furosemide 40 mg p.o. b.i.d. 9. Synthroid 100 mcg p.o. daily. 10. Spiriva 18 mcg inhaled daily. 11. Warfarin 3 mg p.o. There is no discontinued medications. HISTORY OF PRESENT ILLNESS/HOSPITAL COURSE: This is an 88-year-old male who presented to the emergency room as a transfer from [facility]. The patient was outside walking approximately 1 mile, which he completed. The patient was walking to his truck, felt somewhat lightheaded and stepped off a curb, slipped and fell, striking his right hip. The patient denied head trauma or loss of consciousness. He denied any chest pain, shortness of breath. No nausea, vomiting, fever, or chills. He was evaluated in [place] to have a right femur fracture. He was transferred for further care. Orthopedic Surgery was notified and Trauma Services was asked to admit the patient. The patient takes Coumadin for atrial fibrillation. His initial INR was 2.1. The patient's Coumadin was reversed before going to surgery for repair. The patient with chronic UTI history and takes Cipro prophylactically daily. The patient did have an episode of hypotension during his hospital visit, was given a fluid bolus with no further complications. The patient did have some renal impairment during his hospital stay and all nephrotoxic medications were stopped. Which included NSAIDs and Bactrim as he was found to have a urine culture positive for Citrobacter-freundii, which was resistant to ciprofloxacin. The patient was initially placed on Bactrim before cultures. Bactrim was eventually stopped as it also can be nephrotoxic. The patient was then placed on Macrobid due to its sensitivity. The patient also had excessive drainage from his incision which delayed his hospital stay an extra day. The patient was soaking through several ABD pads and was having to change the dressing several times on the . Orthopedics was notified and requested that that patient stay another day. On the day of discharge, the patient was evaluated and deemed stable for discharge to swing bed for continued physical and occupational therapy. On the day of discharge, the patient had no complaints. His vital signs were stable and his exam was unremarkable including cardiopulmonary and GI exam. Orthopedics was also okay for patient to be discharged. The plan was discussed with Dr. Chacon, who also agreed with discharge. DISPOSITION: Stable. DISCHARGE INSTRUCTIONS: 1. Location: Swing bed unit. 2. Diet: Regular diet. 3. Activity: Orthopedic limitations, hip precautions and weightbearing as tolerated right lower extremity. 4. Followup: Follow up with primary care as needed. Follow up with Dr. Clark in two weeks. Follow up with Dr. Chacon as needed. Job ID: [id number] [facility]
== END 2018-08-08 16:55 | DRG 481 ==
LOC: ERS 16:31 → 2NO 18:05 → SURG A 08-03 12:39 → SURG B 08-03 19:19
PROVIDERS: ADMIT Surgery; ATTEND Surgery
PROC: 0QSB04Z Reposition Right Lower Femur with Internal Fixation Device, Open Approach (ICD-10-PCS; principal; 2018-08-03)
DX: S72.141A Displaced intertrochanteric fracture of right femur, initial encounter for closed fracture (principal); N39.0 Urinary tract infection, site not specified; G47.33 Obstructive sleep apnea (adult) (pediatric); I48.91 Unspecified atrial fibrillation; Z93.3 Colostomy status; Z86.718 Personal history of other venous thrombosis and embolism; Z79.01 Long term (current) use of anticoagulants; Z88.8 Allergy status to other drugs, medicaments and biological substances; Z79.899 Other long term (current) drug therapy; Z85.038 Personal history of other malignant neoplasm of large intestine; Z85.46 Personal history of malignant neoplasm of prostate; Z92.3 Personal history of irradiation; Z85.840 Personal history of malignant neoplasm of eye; E03.9 Hypothyroidism, unspecified; N18.9 Chronic kidney disease, unspecified; Z87.440 Personal history of urinary (tract) infections; I08.1 Rheumatic disorders of both mitral and tricuspid valves; W01.0XXA Fall on same level from slipping, tripping and stumbling without subsequent striking against object, initial encounter
CPT/HCPCS: 36415; 36416; 36430; 71045; 72170; 76000; 80048; 80053; 81001; 82533; 82550; 83690; 83735; 83880; 84100; 84484; 85025; 85610; 85730; 86850; 86900; 86901; 87077; 87086; 87186; 93005; 93010; 93306; 94640; 96361; 96365; 96375; C1713; C1769; G0390; J0131; J1650; J1720; J2001; J2270; J2704; J3010; J3430; J3490; J7050; J7620; P9059